=== PATIENT | male | born 1995 | race Caucasian/White ===

== ENCOUNTER 2022-07-12 07:34 | Emergency (ER) | payer OTHER, SELFPAY ==
--- NOTE | ~2022-07-12 | XR_ITS ---
EXAMINATION: XR shoulder RT min 2V DATE: 07/12/2022 10:08 INDICATION: Nontraumatic right shoulder pain TECHNIQUE: AP internally and externally rotated, AP oblique externally rotated and transscapular Y vi ews of the right shoulder were obtained. COMPARISON: None FINDINGS: Normal alignment. No fracture. Glenohumeral joint is normal. Acromioclavicular joint is normal. Soft tissues are unremarkable. IMPRESSION: Negative right shoulder radiographs. Reviewed, dictated and finalized at location A. T [facility]
[2022-07-12 07:37] VITALS: BP 155/73; PULSE 72; RESP 16; TEMP 36.8; O2SAT 100
[2022-07-12] MEDS: KETOROLAC (*BKC) 60 MG/2 ML VIAL IM (10:27)
--- NOTE | 2022-07-12 11:00 | ED.GENADULT ---
HPI - General Adult General Chief complaint: Extremity Injury, Upper Stated complaint: right shoulder pain Time Seen by Provider: 07/12/22 09:30 History of Present Illness HPI narrative: Patient is a 27-year-old male who presents ER with right shoulder pain. Reports its been intermittent since dislocating his shoulder and injuring his clavicle years ago. 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 No numbness or tingling. Maintains range of motion at the right shoulder. No swelling or deformity. Denies fevers or chills or sweats. Related Data Allergies Allergy/AdvReac Type Severity Reaction Status Date / Time No Known Allergies Allergy Verified 07/12/22 10:27 Review of Systems Constitutional: Constitutional: Denies chills and Denies fever(s) Musculoskeletal: Musculoskeletal: Reports arthralgias, Denies joint swelling and Denies muscle cramps Integumentary/Breasts: Skin/Breast: Denies erythema and Denies rash Comments: bruising to shoulder and neck Neurologic: Denies focal weakness and Denies numbness PMFSH Past Medical History Medical History (Updated 07/12/22 @ 11:05 by Kota Burns MD) Healthy adult male Surgical History Surgical History (Updated 07/12/22 @ 11:02 by Kota Burns MD) No history of previous surgery Exam Narrative: GENERAL: Well-appearing, well-nourished, and in no acute distress. HEAD: Normocephalic, atraumatic. NECK: Supple. No tenderness of the paraspinal musculature. HEART: Regular rate and rhythm. Normal peripheral pulses. EXTREMITIES: Right shoulder exam with full active range of motion without any joint line tenderness or tenderness over the clavicle or acromioclavicular process. SKIN: Warm, dry, no rash. Bruising to the right neck and shoulder/chest consistent with hickeys. NEURO: Alert and oriented x3. PSYCH: Normal mood and affect. Course Course Emergency Course: Imaging unremarkable. Will treat with anti-inflammatory medication. Discharge home. Vital Signs Vital signs: Vital Signs Temperature 98.3 F 07/12/22 07:37 Pulse Rate 72 07/12/22 07:37 Respiratory Rate 16 07/12/22 07:37 Blood Pressure 155/73 H 07/12/22 07:37 Pulse Oximetry 100 07/12/22 07:37 Oxygen Delivery Room Air 07/12/22 07:37 Temperature 98.3 F 07/12/22 07:37 Pulse Rate 72 07/12/22 07:37 Respiratory Rate 16 07/12/22 07:37 Blood Pressure 155/73 H 07/12/22 07:37 Pulse Oximetry 100 07/12/22 07:37 Oxygen Delivery Room Air 07/12/22 07:37 Medical Decision Making Vital Signs Vital Signs: Vital Signs Temperature 98.3 F 07/12/22 07:37 Pulse Rate 72 07/12/22 07:37 Respiratory Rate 16 07/12/22 07:37 Blood Pressure 155/73 H 07/12/22 07:37 Pulse Oximetry 100 07/12/22 07:37 Oxygen Delivery Room Air 07/12/22 07:37 Temperature 98.3 F 07/12/22 07:37 Pulse Rate 72 07/12/22 07:37 Respiratory Rate 16 07/12/22 07:37 Blood Pressure 155/73 H 07/12/22 07:37 Pulse Oximetry 100 07/12/22 07:37 Oxygen Delivery Room Air 07/12/22 07:37 Imaging Data Radiologist's impression: ITS Impressions Shoulder X-Ray 07/12/22 10:10 IMPRESSION: Negative right shoulder radiographs. Discharge Plan Discharge Clinical Impression: Shoulder arthralgia, Cramp in muscle Patient Disposition: Home, Self-Care Condition: Stable Instructions: Muscle Cramp (ED), Shoulder Pain (ED) Additional Instructions: Return the ER if you have new injury, you have chest pain or shortness of breath, you cannot keep down food or water, you have additional concerns. Follow-up with your primary care doctor for further evaluation. You may require physical therapy. Do not go to work while taking muscle relaxers. Prescriptions: New cyclobenzaprine 10 mg tablet 10 mg PO TID PRN (Reason: muscle spasm) Qty: 20 0RF naproxen 375 mg tablet
== END 2022-07-12 11:18 | disposition home or self-care (01) ==
PROVIDERS: Emergency Provider Emergency Medicine
DX: M25.511 Pain in right shoulder (principal); R25.2 Cramp and spasm
CPT/HCPCS: 73030; 96372; 99283; J1885

== ENCOUNTER 2023-12-06 18:38 | Emergency (ER) | payer OTHER, SELFPAY ==
--- NOTE | ~2023-12-06 | XR_ITS ---
EXAMINATION: XR hand RT min 3V DATE: 12/06/2023 20:19 INDICATION: Right hand laceration. TECHNIQUE: 3 views of right hand were obtained. COMPARISON: Right hand radiographs 05/28/19 FINDINGS: Bone alignment is normal. No fracture. Joint spaces are normal. IMPRESSION: 1. No fracture or radiopaque foreign body. Reviewed, dictated and finalized at location E.
[2023-12-06 18:42] VITALS: BP 149/86; PULSE 78; RESP 16; TEMP 36.3; O2SAT 97
--- NOTE | 2023-12-06 20:06 | ED.WOUNDLAC ---
HPI - Wound/Laceration General Chief Complaint: Wound/Laceration Stated Complaint: hand lac Time Seen by Provider: 12/06/23 18:47 Source: patient Mode of arrival: ambulatory Limitations: no limitations History of Present Illness HPI narrative: Patient is a 28-year-old male who presents the ED with report of lacerations to his R wrist and hand. Patient reports he was cleaning out his garage when a mirror fell and smashed. He sustained several small lacerations to his R hand and wrist. Reports some tingling in his fingers. Denies numbness. Tetanus unknown. Related Data Allergies Allergy/AdvReac Type Severity Reaction Status Date / Time No Known Allergies Allergy Verified 12/06/23 18:40 Review of Systems Review of Systems: CONSTITUTIONAL: Denies fever, chills, or sweats. SKIN: See HPI MUSCULOSKELETAL: See HPI NEUROLOGIC: See HPI All systems reviewed & are unremarkable except as noted in HPI and below PMFSH Past Medical History Medical History Healthy adult male Surgical History Surgical History No history of previous surgery Exam Narrative: GENERAL: Well appearing, well-nourished, non-toxic, in no acute distress. HEAD: Normocephalic, atraumatic. RESPIRATORY: Airway patent, respirations nonlabored. CARDIOVASCULAR: Regular rate and rhythm. Radial pulses intact. MUSCULOSKELETAL: Moves all extremities. No gross deformities. Several small pinpoint laceration to right dorsal hand, right lateral palm. 0.5cm laceration to R 3rd digit extensor surface over PIP joint. 0.5 cm linear laceration to R volar wrist. Small amount of subq fat present. Small superficial abrasion to L palm near area of 5th MCP, does not extend fully through epidermis. Sensation intact throughout RUE/R wrist/R hand. SKIN: Warm, dry, normal color. NEURO: A&O X3. Speech clear. Cranial nerves II-XII grossly intact. Steady gait. No ataxic movements. PSYCHIATRIC: Appropriate mood and affect. Normal interaction. Course Vital Signs Vital signs: Vital Signs Temperature 97.3 F L 12/06/23 18:42 Pulse Rate 78 12/06/23 18:42 Respiratory Rate 16 12/06/23 18:42 Blood Pressure 149/86 H 12/06/23 18:42 Pulse Oximetry 97 12/06/23 18:42 Temperature 97.3 F L 12/06/23 18:42 Pulse Rate 78 12/06/23 18:42 Respiratory Rate 16 12/06/23 18:42 Blood Pressure 149/86 H 12/06/23 18:42 Pulse Oximetry 97 12/06/23 18:42 Procedures Laceration Laceration 1: Date: 12/06/23 Time: 20:50 Site: upper extremity (forearm) Side (If applicable): right Size (cm): 0.5 Description: linear Depth: simple, single layer Local Anesthetic: lidocaine 1% Amount of anesthesia used (mL): 3 Pre-repair: wound explored and irrigated ====== Skin Level ====== Skin layer closed with: nylon Size (cm): 4-0 Number of sutures: 2 Technique: simple, interrupted ====== Subcutaneous Layer ====== ====== Muscle Layer ====== ====== Tendon Layer ====== Laceration 2: Date: 12/06/23 Time: 20:55 Site: hand Side (If applicable): right (3rd digit) Size (cm): 0.5 Description: linear Depth: simple, single layer Local Anesthetic: lidocaine 1% Amount of anesthesia used (mL): 3 Pre-repair: wound explored and irrigated ====== Skin Level ====== Skin layer closed with: nylon Size (cm): 4-0 Number of sutures: 2 Technique: simple, interrupted ====== Subcutaneous Layer ====== ====== Muscle Layer ====== ====== Tendon Layer ====== MDM - Wound/Laceration MDM Narrative Medical decision making narrative: Patient presented to ED with lacerations to right hand/ wrist. Neurovascularly intact. X-ray without evidence of foreign body
[2023-12-06] MEDS: TETANUS,DIPHTHERIA,AC PERTUSSIS ADULT (0.5 ML) BOOSTRIX IM (20:25)
[2023-12-06 21:12] VITALS: BP 136/75; PULSE 74; RESP 18; O2SAT 100
== END 2023-12-06 21:11 | disposition home or self-care (01) ==
PROVIDERS: Emergency Provider Physician Assistant
DX: S61.411A Laceration without foreign body of right hand, initial encounter (principal); S51.811A Laceration without foreign body of right forearm, initial encounter; W25.XXXA Contact with sharp glass, initial encounter; Z23 Encounter for immunization
CPT/HCPCS: 12001; 73130; 90471; 90715; 99283

== ENCOUNTER 2024-10-29 16:25 | Emergency (ER) | payer OTHER, SELFPAY ==
[2024-10-29 16:30] VITALS: BP 134/81; PULSE 66; RESP 18; TEMP 36.4; O2SAT 99
--- NOTE | 2024-10-29 18:03 | ED.WOUNDLAC ---
HPI - Wound/Laceration General Chief Complaint: Wound/Laceration Stated Complaint: Laceration 2cm x 8cm left arm Time Seen by Provider: 10/29/24 17:21 Source: patient Mode of arrival: ambulatory Limitations: no limitations History of Present Illness HPI narrative: This is a 29-year-old male that presents to the emergency department for laceration of left forearm. Reports a tree branch fell onto his left arm and cut him. Reports bleeding and pain to the area. He is up-to-date on tetanus. Related Data Allergies Allergy/AdvReac Type Severity Reaction Status Date / Time No Known Allergies Allergy Verified 10/29/24 16:26 Review of Systems Review of Systems: CONSTITUTIONAL: Denies fever SKIN: Reports laceration All systems reviewed & are unremarkable except as noted in HPI and below PMFSH Past Medical History Medical History Healthy adult male Surgical History Surgical History No history of previous surgery Exam Narrative: GENERAL: Well-appearing, well-nourished, and in no acute distress. HEAD: Normocephalic, atraumatic. EYES: EOMI. EXTREMITIES: Normal range of motion. No edema. Left forearm with 8 cm linear laceration into subcutaneous tissue SKIN: Warm, dry, no rash. NEURO: No focal deficits. Alert and oriented x3. PSYCH: Normal mood and affect Course Course Emergency Course: Patient educated on further wound care Vital Signs Vital signs: Vital Signs Temperature 97.6 F 10/29/24 16:30 Pulse Rate 66 10/29/24 16:30 Respiratory Rate 18 10/29/24 16:30 Blood Pressure 134/81 10/29/24 16:30 Pulse Oximetry 99 10/29/24 16:30 Oxygen Delivery Room Air 10/29/24 16:30 Temperature 97.6 F 10/29/24 16:30 Pulse Rate 66 10/29/24 16:30 Respiratory Rate 18 10/29/24 16:30 Blood Pressure 134/81 10/29/24 16:30 Pulse Oximetry 99 10/29/24 16:30 Oxygen Delivery Room Air 10/29/24 16:30 Procedures Laceration Laceration 1: Date: 10/29/24 Time: 18:06 Site: upper extremity Side (If applicable): left Size (cm): 8 Description: linear Depth: simple, single layer Local Anesthetic: lidocaine 1% Amount of anesthesia used (mL): 5 Pre-repair: wound explored and irrigated ====== Skin Level ====== Skin layer closed with: nylon Size (cm): 4-0 Number of sutures: 10 Technique: simple, interrupted ====== Subcutaneous Layer ====== ====== Muscle Layer ====== ====== Tendon Layer ====== MDM - Wound/Laceration MDM Narrative Medical decision making narrative: Patient presents to the emergency department for laceration to the left forearm. He is up-to-date on tetanus. Wound was irrigated and closed with sutures. Educated on further wound care. He is to follow up with primary provider. He was given warnings to return to the ER Differential Diagnosis Differential diagnosis: Likely laceration, abrasion and avulsion of skin Critical Care Time Critical Care Time Critical Care Time: No Discharge Plan Discharge Clinical Impression: Laceration Patient Disposition: Home Condition: Stable Instructions: Antibiotic Form, Care For Your Stitches (ED), Laceration (ED) Additional Instructions: Return to the emergency department if you experience fever, redness or swelling of your wound, abnormal drainage from your wound, or any other symptoms that are concerning to you. Apply antibiotic ointment daily. Do not soak the wound. Clean with mild soap and water daily. Take oral antibiotic as prescribed Follow-up with your primary care doctor for suture removal in 10-14 days. Patient Language: Icelandic Prescriptions: New cephalexin 500 mg capsule 500 mg PO Q8H 5 Days Qty: 15 0RF No Action cyclobenzaprine 10 mg tablet 10 mg PO TID PRN (Reason: muscle spasm) Qty: 20 0RF naproxen 375 mg tablet 375 mg PO BID Qty: 14 0RF Follow-up/Referrals: Jose Kenyon MD [Physician] - PHYSICIAN,PSYCHOLOGICAL EXAMINER [Primary Care Provider] -
== END 2024-10-29 18:39 | disposition home or self-care (01) ==
PROVIDERS: Emergency Provider Physician Assistant
DX: S51.812A Laceration without foreign body of left forearm, initial encounter (principal); W20.8XXA Other cause of strike by thrown, projected or falling object, initial encounter
CPT/HCPCS: 12004; 99283; J2003